=== PATIENT | female | born 1995 | race American Indian/Alaskan Native ===

== ENCOUNTER → 2017-11-14 | Outpatient (CLI) | payer SELFPAY ==
[~2017-11-14] MED LIST: ALBU90OI INH; Bactrim Ds Tab1 EACH PO; DIPH50 PO; IBUP600 PO; Keflex500 MG PO; NAPR375 PO; PENVK500 PO
[2017-11-14 16:27] LABS: BASOPHILS ABSOLUTE AUTO 0.03 K/mm3 (0.00-0.23); BASOPHILS PERCENT AUTO 0 % (0-2); EOSINOPHILS ABSOLUTE AUTO 0.02 K/mm3 (0.00-0.68); EOSINOPHILS PERCENT AUTO 0 % (0-6); Hematocrit 39.3 % (33.0-51.0); Hemoglobin 13.8 g/dL (11.5-16.0); IMMATURE GRAN ABSOLUTE AUTO 0.03 K/mm3 (0.00-0.10); IMMATURE GRAN PERCENT AUTO 0 % (0-1); LYMPHOCYTES ABSOLUTE AUTO 1.34 K/mm3 (0.84-5.20); LYMPHOCYTES PERCENT AUTO 14 % (21-46); MONOCYTES PERCENT AUTO 11 % (4-13); Mean Corpuscular HGB 31.8 pg (26.0-34.0); Mean Corpuscular HGB Conc 35.1 g/dL (31.5-36.5); Mean Corpuscular Volume 91 fL (80-100); Mean Platelet Volume 10.1 fL (9.1-12.4); NEUTROPHILS ABSOLUTE AUTO 7.09 K/mm3 (1.96-9.15); NEUTROPHILS PERCENT AUTO 75 % (41-73); Platelet Count 275 K/mm3 (150-400); RDW Coefficient Variation 12.2 % (11.7-14.2); RDW Standard Deviation 40.4 fL (35.1-46.3); Red Blood Cell Count 4.34 M/mm3 (3.80-5.20); White Blood Cell Count 9.51 K/mm3 (4.00-11.30)
[2017-11-14 16:35] LABS: Alanine Aminotransfer (ALT/SGP 16 U/L (12-78); Albumin, Blood 4.3 g/dL (3.4-5.0); Alk Phos 58 U/L (40-126); Anion Gap 10 mmol/L (6-16); Aspartate Aminotrans (AST/SGOT 12 U/L (12-37); Bilirubin, Total 0.3 mg/dL (0.1-1.0); Blood Urea Nitrogen 7 mg/dL (8-24); Bun/Creatinine Ratio 8.8 (12.0-20.0); CO2, Blood 27 mmol/L (21-32); Calcium, Blood 9.1 mg/dL (8.5-10.1); Chloride, Blood 101 mmol/L (98-108); Globulin, Blood 4.1 g/dL (2.2-4.0); Glomerular Filtration Rate >60 (60-); Glucose, Blood 103 mg/dL (70-99); Potassium, Blood 4.1 mmol/L (3.5-5.5); Sodium, Blood 138 mmol/L (136-145); Total Protein, Blood 8.4 g/dL (6.4-8.2)
== END ==
LOC: LAB EV 16:20 → LAB SHORT 16:20
PROVIDERS: Internal Medicine
DX: R10.12 Left upper quadrant pain (principal)
CPT/HCPCS: 80053; 83690; 85025; 87077; 87086; 87186

== ENCOUNTER 2018-08-03 13:21 | Emergency (ER) | payer OTHER ==
[~2018-08-03] VITALS: Ht 157.5 cm; Wt 49.0 kg
== END 2018-08-03 14:43 | disposition home or self-care (01) ==
LOC: ER 13:21
DX: O99.352 Diseases of the nervous system complicating pregnancy, second trimester (principal); G89.11 Acute pain due to trauma; O99.89 Other specified diseases and conditions complicating pregnancy, childbirth and the puerperium; R10.9 Unspecified abdominal pain; O99.332 Smoking (tobacco) complicating pregnancy, second trimester; F17.210 Nicotine dependence, cigarettes, uncomplicated; Z88.0 Allergy status to penicillin; Z3A.20 20 weeks gestation of pregnancy; V43.52XA Car driver injured in collision with other type car in traffic accident, initial encounter
CPT/HCPCS: 76815; 99284-25

== ENCOUNTER → 2019-09-01 | Outpatient (CLI) | payer OTHER ==
[2019-09-02 08:52] LABS: Candida species (DNA Probe) Negative (NEGATIVE); G. vaginalis (DNA Probe) Negative (NEGATIVE); T. vaginalis (DNA Probe) Negative (NEGATIVE)
== END | disposition home or self-care (01) ==
LOC: LAB SHORT 14:00 → LAB 14:00
PROVIDERS: Obstetrics & Gynecology
DX: N76.0 Acute vaginitis (principal)
CPT/HCPCS: 87480; 87510; 87660

== ENCOUNTER → 2019-11-10 | Outpatient (CLI) | payer OTHER | LOC: LAB SHORT 09:30 → LAB 09:30 | DX: Z33.1 Pregnant state, incidental (principal) | CPT/HCPCS: 87081; 87653 ==

== ENCOUNTER 2019-11-15 16:25 | Inpatient (IN) | payer OTHER ==
[~2019-11-15] VITALS: Ht 157.5 cm; Wt 54.0 kg
[2019-11-22] MEDS ORDERED: Prenatal Compl1 EACH PO (05:57)
[2019-11-22 06:23] LABS: BASOPHILS ABSOLUTE AUTO 0.02 K/mm3 (0.00-0.23); BASOPHILS PERCENT AUTO 0 % (0-2); EOSINOPHILS ABSOLUTE AUTO 0.09 K/mm3 (0.00-0.68); EOSINOPHILS PERCENT AUTO 1 % (0-6); Hematocrit 34.9 % (33.0-51.0); Hemoglobin 11.6 g/dL (11.5-16.0); IMMATURE GRAN ABSOLUTE AUTO 0.03 K/mm3 (0.00-0.10); IMMATURE GRAN PERCENT AUTO 0 % (0-1); LYMPHOCYTES ABSOLUTE AUTO 1.82 K/mm3 (0.84-5.20); LYMPHOCYTES PERCENT AUTO 21 % (21-46); MONOCYTES ABSOLUTE AUTO 0.57 K/mm3 (0.16-1.47); MONOCYTES PERCENT AUTO 6 % (4-13); Mean Corpuscular HGB 30.1 pg (26.0-34.0); Mean Corpuscular HGB Conc 33.2 g/dL (31.5-36.5); Mean Corpuscular Volume 91 fL (80-100); Mean Platelet Volume 10.1 fL (9.1-12.4); NEUTROPHILS ABSOLUTE AUTO 6.36 K/mm3 (1.96-9.15); NEUTROPHILS PERCENT AUTO 72 % (41-73); Platelet Count 309 K/mm3 (150-400); RDW Coefficient Variation 12.9 % (11.7-14.2); RDW Standard Deviation 41.7 fL (35.1-46.3); Red Blood Cell Count 3.85 M/mm3 (3.80-5.20); White Blood Cell Count 8.89 K/mm3 (4.00-11.30)
--- NOTE | 2019-11-22 08:20 | NUR ---
11/22/19 0820 Ghada Whittaker ADRIEL, VIABLE BABY BOY DELIVERED AT 0752. TO WARMER, WEIGHED AND SWADDLED FOR MOM. WEIGHT 2495 GRAMS, 5 POUNDS, 8 OUCNES. LENGTH 18.5 INCHES. CHEST 12.25 INCHES. HEAD 12.5 INCHES. CORD BLOOD TAKEN AND GIVEN TO SELENA BURNS RN. PLACENTA INTACT.
--- NOTE | 2019-11-22 11:58 | NUR ---
RN ROUNDED TO HELP WITH . INSTRUCT/DEMO WIDENING LATCH, CORRECT POSITIONING, AND NIPPLE SHAPE AFTER FEEDS. INSTRCT/REVIEWED BOOKLET AND BROCHURE ON WHAT TO EXPECT DURING THE FIRST WEEK WITH AND CHANGES IN NB. PT VERBALIZED UNDERSTANDING AND DENIES ANY FURTHER QUESTIONS OR CONCERNS.
--- NOTE | 2019-11-23 02:41 | NUR ---
0223 PT C/O CHEST PAIN AND SHORTNESS OF BREATH. VITALS OBTAINED AND ARE BP 115/61, RESP 18, SPO2 100%. RESPIRATIONS ARE EVEN AND UNLABORED AT THIS TIME. PT ASSISTED TO STANDING AND ABULATING IN ROOM. PT GIVEN SIMETHICONE AND PERCOCET AT 0230. BLEEDING IS SCANT. RAMIREZ REMOVED AT THIS TIME. CHRISTOPH CARE PROVIDED AT THIS TIME. PT SITTING UP IN A CHAIR IN ROOM. SIGNIFICANT OTHER AT BEDSIDE.
--- NOTE | 2019-11-23 06:51 | NUR ---
LAB CALLED WITH POTENTIAL CRITICAL LOW HGB RESULTS, RULING OUT CONTAMINATION. PT RE-ASSESSED FOR SIGNS OF BLEEDING. FUNDUS IS FIRM AT UMBILICUS. BLEEDING IS SCANT AND HAS BEEN SCANT THROUGHOUT SHIFT. INCISION APPEARS WNL, NO FIRMNESS NOTED. NO ADDITIONAL BLEEDING WITH FUNDAL MASSAGE. PT DENIES ANY DIZZINESS OR LIGHTHEADEDNESS. PT DENIES EXCESSIVE WEAKNESS OR FATIGUE, STATES "I JUST FEEL TIRED FROM THE MEDICINE." PT WAS UP AND AMBULATING AT 230, NO ADDITIONAL BLEEDING NOTED AT THAT TIME. PT AGAIN UP AT 0300 AND SHOWERED, NO ADDITIONAL BLEEDING NOTED AT THAT TIME.
[2019-11-23 06:56] LABS: Hematocrit 18.7 % (33.0-51.0); Hemoglobin 6.1 g/dL (11.5-16.0); Mean Corpuscular HGB 29.9 pg (26.0-34.0); Mean Corpuscular HGB Conc 32.6 g/dL (31.5-36.5); Mean Corpuscular Volume 92 fL (80-100); Platelet Count 264 K/mm3 (150-400); RDW Coefficient Variation 13.2 % (11.7-14.2); RDW Standard Deviation 42.7 fL (35.1-46.3); Red Blood Cell Count 2.04 M/mm3 (3.80-5.20); White Blood Cell Count 14.83 K/mm3 (4.00-11.30)
--- NOTE | 2019-11-23 09:54 | NUR ---
RN ROUNDED TO HELP WITH AND ANSWER ANY QUESTIONS. RN HAD ROUNDED YESTERDAY WELL. PT STATES WET WELL THROUGH THE NIGHT. DENIES ANY FURTHER QUESTIONS OR CONCERNS.
--- NOTE | 2019-11-23 10:30 | NUR ---
PT UP AMBULATING IN HALLS, PUSHING IN CRIB
--- NOTE | 2019-11-23 14:17 | NUR ---
AMBULATE IN HALLS PUSHING . TOLERATING WELL
[2019-11-23 15:04] LABS: Hematocrit 18.4 % (33.0-51.0); Mean Corpuscular HGB 29.9 pg (26.0-34.0); Mean Corpuscular HGB Conc 31.5 g/dL (31.5-36.5); Mean Platelet Volume 10.3 fL (9.1-12.4); Platelet Count 306 K/mm3 (150-400); RDW Coefficient Variation 13.7 % (11.7-14.2); RDW Standard Deviation 45.8 fL (35.1-46.3); Red Blood Cell Count 1.94 M/mm3 (3.80-5.20); White Blood Cell Count 14.71 K/mm3 (4.00-11.30)
[2019-11-23 15:08] LABS: Mean Corpuscular Volume 95 fL (80-100)
[2019-11-23 15:11] LABS: Hemoglobin 5.8 g/dL (11.5-16.0)
--- NOTE | 2019-11-23 21:51 | NUR ---
PT UP VOIDING WITH OUT ANY DIFFICULTIES, DENIES DIZZYNESS, BEING LIGHTHEADED WHEN UP, HAS A STEADY GAIT, VERY SCANT BLEEDING OVER 3 HOURS 1.5IN LONG AND .5IN WIDE STRIP ON PAD. PT REPORTS THIS IS HOW MUCH SHE HAS HAD ON HER PADS TODAY THAT SHE CHANGES EVERY 3-4 HOURS,
--- NOTE | 2019-11-23 22:33 | NUR ---
PT ALMOST FINISHED WITH SHOWER, REPORTS DOING WELL, NO PROBLEMS, SO IS IN SHOWER WITH PT.
[2019-11-24 04:41] LABS: Mean Corpuscular HGB 30.1 pg (26.0-34.0); Mean Corpuscular HGB Conc 32.5 g/dL (31.5-36.5); Mean Corpuscular Volume 93 fL (80-100); Mean Platelet Volume 9.6 fL (9.1-12.4); Platelet Count 247 K/mm3 (150-400); RDW Coefficient Variation 13.6 % (11.7-14.2); RDW Standard Deviation 45.2 fL (35.1-46.3); Red Blood Cell Count 1.73 M/mm3 (3.80-5.20)
[2019-11-24 04:42] LABS: Hemoglobin 5.2 g/dL (11.5-16.0)
--- NOTE | 2019-11-24 06:49 | NUR ---
THIS IV INSERTED BY RADIOLOGY DURING CT SCAN. YELITZA, RN
--- NOTE | 2019-11-24 07:42 | NUR ---
11-24-[address] scan called to Dr Sanches
--- NOTE | 2019-11-24 09:14 | NUR ---
PLACED ON PIE BOTTOMER BY KEVIN IN LAC 18 G
[2019-11-24 14:46] LABS: Hematocrit 24.6 % (33.0-51.0); Hemoglobin 8.2 g/dL (11.5-16.0); Mean Corpuscular HGB 29.7 pg (26.0-34.0); Mean Corpuscular HGB Conc 33.3 g/dL (31.5-36.5); Platelet Count 270 K/mm3 (150-400); RDW Standard Deviation 48.1 fL (35.1-46.3); Red Blood Cell Count 2.76 M/mm3 (3.80-5.20); White Blood Cell Count 11.34 K/mm3 (4.00-11.30)
[2019-11-24 14:48] LABS: Mean Corpuscular Volume 89 fL (80-100)
[2019-11-25 05:38] LABS: Hematocrit 26.7 % (33.0-51.0); Hemoglobin 8.9 g/dL (11.5-16.0); Mean Corpuscular HGB 29.8 pg (26.0-34.0); Mean Corpuscular HGB Conc 33.3 g/dL (31.5-36.5); Mean Corpuscular Volume 89 fL (80-100); Mean Platelet Volume 9.5 fL (9.1-12.4); Platelet Count 262 K/mm3 (150-400); RDW Coefficient Variation 15.4 % (11.7-14.2); RDW Standard Deviation 49.2 fL (35.1-46.3); Red Blood Cell Count 2.99 M/mm3 (3.80-5.20); White Blood Cell Count 8.76 K/mm3 (4.00-11.30)
[2019-11-25] MEDS ORDERED: Percocet 5-3251 EACH (10:15)
== END 2019-11-25 11:48 | disposition home or self-care (01) | DRG 788 ==
LOC: BC 11-22 05:46
PROVIDERS: Obstetrics & Gynecology; ADMIT Obstetrics & Gynecology
PROC: 10D00Z1 Extraction of Products of Conception, Low, Open Approach (ICD-10-PCS; principal; 2019-11-21)
DX: O34.211 Maternal care for low transverse scar from previous cesarean delivery (principal); Z3A.39 39 weeks gestation of pregnancy; Z37.0 Single live birth; Z87.59 Personal history of other complications of pregnancy, childbirth and the puerperium; O90.81 Anemia of the puerperium
CPT/HCPCS: 36415; 36430; 74177; 85025; 85027; 86850; 86900; 86901; 86923; J0690; J1885; J2210; J2405; J2590; J2765; J3010; J7030; J7120; P9016; Q9967

== ENCOUNTER 2021-03-22 12:01 | Emergency (ER) | payer OTHER ==
[~2021-03-22] VITALS: Ht 157.5 cm; Wt 43.5 kg
[~2021-03-22 12:01] MED LIST changes: +Percocet 5-3251 EACH; +Prenatal Compl1 EACH PO
[2021-03-22 15:48] LABS: Source, Urine Clean Catch
[2021-03-22 16:00] LABS: Bilirubin, Urine Neg (Neg); Blood, Urine Neg (Neg); Color, Urine Yellow (P-Yellow); Glucose Qualitative, Urine 1+ (Neg); Ketones, Urine Neg (Neg); Leukocyte Esterase, Urine 1+ (Neg); Nitrite, Urine Neg (Neg); Protein, Urine 1+ (Neg); Specific Gravity, Urine 1.015 (1.003-1.022); Urobilinogen, Urine NORM (Normal); pH, Urine 6.5 (5.0-8.0)
[2021-03-22 16:33] LABS: Appearance, Urine Clear (Clear)
[2021-03-22 16:34] LABS: Bacteria Few /hpf; Red Blood Cells, Urine Not Seen /hpf (0-2); Squamous Epithelial Cells Few /hpf (Few)
[2021-03-22] MEDS ORDERED: METR500 PO (17:19)
[2021-03-22] MEDS ORDERED: DOXY100 PO (17:19)
== END 2021-03-22 17:59 | disposition home or self-care (01) ==
LOC: ER 12:01
PROVIDERS: Physician Assistant
DX: N75.1 Abscess of Bartholin's gland (principal); F17.200 Nicotine dependence, unspecified, uncomplicated
CPT/HCPCS: 56420; 81001; 81025; 87086; 99283-25; A9270